=== PATIENT | male | born 1970 | race Caucasian/White ===

== ENCOUNTER 2022-06-16 20:27 | Emergency (ER) | payer SELFPAY ==
[~2022-06-16] VITALS: Ht 177.8 cm; Wt 80.0 kg
[2022-06-16 20:29] VITALS: BP 91/64
[2022-06-16] MEDS ORDERED: SODIUM CHLORIDE 0.9% 1,000 ML IV ONE (20:45)
== END 2022-06-16 21:36 | disposition left against medical advice (07) ==
LOC: ER 20:27
DX: F10.129 Alcohol abuse with intoxication, unspecified (principal); Y90.9 Presence of alcohol in blood, level not specified
CPT/HCPCS: 99283; J7030; 80305; 81003